=== PATIENT | male | born 1950 | race Caucasian/White ===

== ENCOUNTER 2018-06-12 06:28 | Inpatient (IN) | payer OTHER, MEDICAID ==
[~2018-06-12] VITALS: Ht 170.1 cm; Wt 68.0 kg
--- NOTE | ~2018-06-12 | WRIGHTHP ---
[place], [place] PATIENT HISTORY AND PHYSICAL EXAM NAME: ROBIN LÓPEZ UNIT #: [id number] ROOM: 311 DOCTOR: MADELINE BHANDARI MD BIRTHDATE: [birth year] DOS: 06/13/2018 INITIAL PSYCHIATRIC EVALUATION CHIEF COMPLAINT: "Oh, the stress just got to me and I did something really stupid." HISTORY OF PRESENT ILLNESS: This is a 67-year-old white male who was sent here from [facility] where he had presented after attempting to cut his wrist. The patient reports ongoing significant financial trouble where he believed that he and his were going to lose their home. He did not want to share this information with her, but felt so overwhelmed. He thought the only way out was to kill himself. He reports that he has no previous psychiatric history. He has never seen a counselor. He has never been on any antidepressants and he currently denies that he is depressed, stating that the stressors of life just got the worst of him and he feels significant remorse for his action. He denies any issues with sleep or appetite, but understands that we are evaluating him for lethality. He is admitted now to rule out any possible suicidal thoughts, homicidal thoughts, or self-injurious thoughts while we work to help him problem solve his issues. PAST MEDICAL HISTORY: Remarkable for renal cell cancer with a partial nephrectomy. He also has significant back pain. SOCIAL HISTORY: He does not drink alcohol, use illicit drugs. He is a cigarette smoker, however. STRENGTHS: Good verbal skills, ambulatory, supportive family. WEAKNESSES: Poor coping skills, impulsive behavior. MENTAL STATUS: He is alert and oriented. Mood does seem to be somewhat depressed and with anxious overtones. There is no zulma, hypomania. There are no auditory or visual hallucinations, delusions or paranoia. Short, intermediate, and long-term memory are intact. DIAGNOSIS: Major depression, single episode. PLAN: Routine screening examination show him to have a low vitamin B12 level of 261. I will treat with vitamin B12 injection 1000 mcg IM every month. His vitamin D level is very low at 9.6. I will treat with vitamin D 5000 International Units daily. His folate level was also low at 4.6. I will treat with multivitamin with minerals 1 tab daily. I will use Zostrix high potency cream t.i.d. for his back pain. I have ordered Cymbalta 30 mg at bedtime; however, the patient is refusing to take it, stating he is not depressed. I did discuss with him the pros and cons of the medication and told him that it will remain there if he should decide to take it. We will engage in individual and ross milieu activity and problem solving issues and determine then the least restrictive environment to which he can be discharged. [place], [place] PATIENT HISTORY AND PHYSICAL EXAM NAME: ROBIN LÓPEZ UNIT #: [id number] ROOM: [facility] DOCTOR: MADELINE BHANDARI MD BIRTHDATE: [birth year] MADELINE BHANDARI MD CM:HISPHYS:PATIENT HISTORY AND PHYSICAL EXAMINATION [phone] MADELINE BHANDARI MD 06/13/1825 interface
--- NOTE | ~2018-06-12 | DS ---
[place], [place] DISCHARGE SUMMARY NAME: ROBIN LÓPEZ UNIT #: [id number] ROOM: 311 DOCTOR: MADELINE BHANDARI MD BIRTHDATE: [birth year] DOS: 06/15/2018 CHIEF COMPLAINT: "Oh, the stress just got to me. I did something really stupid." HISTORY OF PRESENT ILLNESS: This is a 67-year-old white male who was sent here from [facility] where he presented after attempting to cut his wrist. The patient reports ongoing significant financial trouble where he believed he and his are going to lose their home. He did not want to share this information with his , but kept it secret and it felt so overwhelmed by it he thought the only way out of his situation was to kill himself. He reports no previous psychiatric history. He has never seen a counselor. He has never been on any type of psychotropic medication. He currently denies that he is depressed stating that he only felt overwhelmed by the stressors in his life and did something stupid. He did report normal remorse for his actions. He did not have any neurovegetative symptoms and stated his sleep and appetite have been fine and he has not had any issues. Nonetheless, he was admitted to rule out lethality to further assess for depression and to determine the least restrictive environment to which he can be discharged. SUMMARY OF HOSPITAL COURSE: The patient was admitted to the unit where screening examination show him to have a low normal vitamin B12 level of 261 for which vitamin B12 injection 1000 mcg IM every month was added. His vitamin D level was very low at 9.6, so he was given vitamin D 5000 international units daily. Folate level was also low at 4.6 mg daily and he was treated then with multivitamin with minerals daily. Zostrix high potency cream was utilized for back pain. Cymbalta was ordered at 30 mg at bedtime and I educated him about the risks, benefits of the Cymbalta, but nonetheless he refused at several days in a row. After I had an opportunity to further evaluate him, he did not exhibit any signs of depression. He was fairly euthymic. He was positive thinking for the future. He felt that there were solutions to his problems now other than suicide. He did not feel that he needed any type of psychopharmacologic intervention and was ready for discharge at that point in time. MENTAL STATUS AT DISCHARGE: The patient is alert and oriented to person, place, and time. Mood was euthymic. Affect appropriate. He did not have any neurovegetative symptoms. He convincingly denied suicidal thoughts, homicidal thoughts and any self-injurious thoughts. There were no symptoms suggestive of zulma, hypomania or psychosis. Memory was fully intact. DIAGNOSIS: Adjustment disorder with depressed mood. DISPOSITION: The patient is returning home. His prescriptions for the multivitamins and other supplements have been ordered along with the Zostrix. Appropriate aftercare has been set. [place], [place] DISCHARGE SUMMARY NAME: ROBIN LÓPEZ UNIT #: [id number] ROOM: 311 DOCTOR: MADELINE BHANDARI MD BIRTHDATE: [birth year] MADELINE BHANDARI MD CM:ALEJA MADELINE BHANDARI MD 06/15/18 0854 interface
--- NOTE | ~2018-06-12 | PR ---
[place], [place] PROGRESS NOTE NAME: ROBIN LÓPEZ UNIT #: [id number] ROOM: 311 DOCTOR: MADELINE BHANDARI MD BIRTHDATE: [birth year] DOS: 06/14/2018 INTERVAL NOTE CHIEF COMPLAINT: "I feel so much better, thank you for caring doctor." SUMMARY OF THE VISIT: The patient was interviewed as he was sitting in the group room with another male peer. He nodded that it was okay for me to talk openly in front of the other patient. He reports he once again did not feel he needed the Cymbalta, but thank me for the vitamin replacement and he did take the folic acid, the vitamin D and the B12 injection. He also has been taking the Zostrix and I explained at length how the Zostrix works compared to an opiate and he nodded in approval. He is very forward thinking and is discussing with me many plans he has for the future and is worried about his who needs a colostomy change on Saturday morning. He denies convincingly any suicidal thoughts, homicidal thoughts or any self-injurious thoughts and reports that without any medication, he did sleep well despite what he heard was a noisy night. He also had a good breakfast. MENTAL STATUS: He is alert and oriented to person, place and time. Mood does seem to be euthymic. Affect appropriate. There is no zulma, hypomania or psychosis. He denies suicidal thoughts, homicidal thoughts, or self-injurious thoughts. Memory is fully intact. PLAN: I will continue to assess for lethality. At this point, I will discontinue the Cymbalta as he is refusing it and maintain his other psychotropics. We will finalize discharge plans and discharge then when psychiatrically stable. MADELINE BHANDARI MD CM:PNTRANS [id number] MADELINE BHANDARI MD 06/14/18 1505 interface
[2018-06-12] MEDS ORDERED: NORCO 5-325 TA1 EACH PO (06:31)
[2018-06-12] MEDS ORDERED: CYCLOBENZAPRINE5 M3 PO (06:31)
[2018-06-12] MEDS ORDERED: MULTI-VITAMIN1 EACH PO (06:33)
[2018-06-12] MEDS ORDERED: FLOMAX0.4 MG PO (06:34)
[2018-06-12 14:43] VITALS: BP 141/78
[2018-06-12 15:04] VITALS: BP 141/78
[2018-06-12 19:41] VITALS: BP 126/58
[2018-06-13 06:33] LABS: BASO % 0.3 % (0.0-1.0); EOS # 0.1 10*3/uL (0.0-0.4); EOS % 0.7 % (1.0-4.0); HEMATOCRIT 26.9 % (42.0-52.0); HEMOGLOBIN 9.1 g/dl (14.0-18.0); LYMPH % 14.6 % (27.0-41.0); MEAN CELL VOLUME 89.7 fl (80.0-94.0); MEAN CORPUSCULAR HGB 30.3 pg (27.0-31.0); MEAN CORPUSCULAR HGB CONC 33.8 g/dl (33.0-37.0); MONO # 0.6 10*3/uL (0.1-1.0); MONO % 8.7 % (3.0-9.0); NEUT # 5.1 10*3/uL (2.3-7.9); NEUT % 75.1 % (47.0-73.0); PLATELET COUNT AUTOMATED 194 10*3/uL (130-400); RED CELL DISTRI WIDTH 13.4 % (0-14.5); WHITE BLOOD COUNT 6.8 10*3/uL (4.8-10.8)
[2018-06-13 06:43] LABS: ALBUMIN 2.9 gm/dl (3.1-4.5); ALKALINE PHOSPHATASE 76 U/L (45-117); BUN 13 mg/dl (7-24); CHLORIDE 108 mmol/L (98-107); CHOLESTEROL 158 mg/dL (<200); CREATININE 0.68 mg/dL (0.70-1.30); HDL CHOLESTEROL 22 mg/dl (40-60); LDL CHOLESTEROL 106 mg/dL (9-159); POTASSIUM 3.7 mmol/L (3.5-5.1); SGOT/AST 26 IU/L (3-35); SGPT/ALT 24 U/L (12-78); SODIUM 141 mmol/L (136-145); TOTAL PROTEIN 6.5 gm/dL (6.4-8.2); TRIGLYCERIDES 152 mg/dl (<150); VLDL CHOLESTEROL 30 mg/dL (6-40)
[2018-06-13 06:50] LABS: THYROID STIM HORMONE (HS) 0.217 uIU/ml (0.358-4.75)
[2018-06-13 07:49] VITALS: BP 141/73
[2018-06-13 08:01] LABS: VITAMIN D, 25-HYDROXY 9.6 ng/mL (30-100)
[2018-06-13 19:46] VITALS: BP 127/79
[2018-06-14 07:21] VITALS: BP 137/86
[2018-06-14 20:11] VITALS: BP 126/72
[2018-06-15 07:18] VITALS: BP 145/88
[2018-06-15] MEDS ORDERED: B121000 MCG/1 IM (08:20)
[2018-06-15] MEDS ORDERED: THERA M PLUS T1 EACH PO (08:20)
[2018-06-15] MEDS ORDERED: Zostrix 0.1% T (08:20)
[2018-06-15] MEDS ORDERED: VITAMIN D5000 UNI1 PO (08:20)
[2018-06-15] MEDS ORDERED: NORCO 5-325 TA1 EACH PO (12:27)
== END 2018-06-15 12:54 | disposition home or self-care (01) | DRG 881 ==
LOC: 3N 06:28
PROVIDERS: Psychiatry & Neurology Psychiatry
DX: F32.9 Major depressive disorder, single episode, unspecified (principal); E44.0 Moderate protein-calorie malnutrition; T14.91XA Suicide attempt, initial encounter; S61.511A Laceration without foreign body of right wrist, initial encounter; F43.21 Adjustment disorder with depressed mood; D64.9 Anemia, unspecified; E87.8 Other disorders of electrolyte and fluid balance, not elsewhere classified; E53.8 Deficiency of other specified B group vitamins; E55.9 Vitamin D deficiency, unspecified; M54.9 Dorsalgia, unspecified; F17.200 Nicotine dependence, unspecified, uncomplicated; Z71.6 Tobacco abuse counseling; Z85.528 Personal history of other malignant neoplasm of kidney; Z90.5 Acquired absence of kidney; Z88.0 Allergy status to penicillin; Z88.8 Allergy status to other drugs, medicaments and biological substances; Z79.899 Other long term (current) drug therapy; Z68.23 Body mass index [BMI] 23.0-23.9, adult